=== PATIENT | male | born 1960 | race Caucasian/White ===

== ENCOUNTER 2017-05-21 07:50 | Inpatient (IN) | payer OTHER ==
[2017-05-21] MEDS: CEFAZOLIN 2 GM/50 ML (PMX) 50 ML IVPB (06:00)
[~2017-05-21 07:50] MED LIST: ATROPINE 1 MG/10 ML SYRINGE IV; CEFAZOLIN 1 GM INJ; DIPHENHYDRAMINE 50 MG INJ IV; EPHEDrine SULFATE 50 MG/5 ML SYG IV; FENTAnyl 50 MCG/ML VIAL IV; HYDROmorphONE (0.2 MG/ML) 10ML SYG IV; LABETALOL HCL 20MG INJ IV; LACTATED RINGER'S 1,000 ML IV*; MEPERIDINE 25 MG INJ IV; MIDAZOLAM 1 MG/ML 2 ML INJ IV; OXYCODONE/ACETAMINOPHEN (5/325) TAB PO; hydrALAzine 20 MG INJ IV; morphine (1 MG/ML) 10ML SYRINGE IV
[2017-05-21] MEDS ORDERED: LIDOCAINE 2% (SDV) 5 ML INJ (08:26)
[2017-05-21] MEDS ORDERED: GLYCOPYRROLATE 0.4 MG INJ (08:26)
[2017-05-21] MEDS ORDERED: NEOSTIGMINE 3 MG/3 ML SYRINGE (08:26)
[2017-05-21] MEDS ORDERED: ROCURONIUM 50 MG INJ (08:26)
[2017-05-21] MEDS ORDERED: PROPOFOL 20 ML (08:26)
[2017-05-21] MEDS ORDERED: FENTAnyl 50 MCG/ML VIAL (08:27)
[2017-05-21] MEDS ORDERED: DEXAMETHASONE 4 MG/ML 1 ML INJ (08:27)
[2017-05-21] MEDS ORDERED: MIDAZOLAM 1 MG/ML 2 ML INJ (08:27)
[2017-05-21] MEDS ORDERED: ONDANSETRON 4 MG INJ (08:27)
[2017-05-21] MEDS ORDERED: KETOROLAC 30 MG INJ (09:27)
[2017-05-21] MEDS ORDERED: FLUMAZENIL 0.5 MG INJ (09:45)
[2017-05-21] MEDS ORDERED: GELATIN SIZE 100 SPONGE (10:00)
[2017-05-21] MEDS ORDERED: THROMBIN 5000 UNIT VIAL (10:00)
[2017-05-21] MEDS ORDERED: hydrALAzine 20 MG INJ (11:11)
[2017-05-21] MEDS ORDERED: THROMBIN(HUM PLAS)/FIBRINOG/CA 5 ML VIAL TOP (11:19)
[2017-05-21] MEDS: BUPIVACAINE 0.25% (MPF) 30 ML INJ (11:43)
[2017-05-21] MEDS: POLYMYXIN/BACITRACIN 1L IRRIG (11:44)
[2017-05-21] MEDS ORDERED: DIAZEPAM 5 MG/ML SYG IM (13:00)
[2017-05-21] MEDS ORDERED: ONDANSETRON 4 MG INJ IV (13:00)
[2017-05-21] MEDS ORDERED: ZOLPIDEM 5 MG TAB PO (13:00)
[2017-05-21] MEDS ORDERED: ACETAMINOPHEN 325 MG TAB PO (13:00)
[2017-05-21] MEDS ORDERED: BETHANECHOL 25 MG TAB PO (13:00)
[2017-05-21] MEDS ORDERED: NALOXONE (0.4 MG/ML) INJ IV (13:00)
[2017-05-21] MEDS ORDERED: PROCHLORPERAZINE 10 MG TAB PO (13:00)
[2017-05-21] MEDS ORDERED: NACL 0.9% 3 ML SYG IV (13:00)
[2017-05-21] MEDS ORDERED: TRIMETHOBENZAMIDE 100 MG/ML VIAL IM (13:00)
[2017-05-21] MEDS ORDERED: DIPHENHYDRAMINE 50 MG CAP PO (13:00)
[2017-05-21] MEDS ORDERED: DIAZEPAM 5 MG TAB PO (13:00)
[2017-05-21] MEDS ORDERED: HYDROCODONE/APAP (5/325) TAB PO (13:00)
[2017-05-21] MEDS ORDERED: AL HYDROX/MG HYDROX/SIMETH 30 ML CUP PO (13:00)
[2017-05-21] MEDS: ONDANSETRON 4 MG INJ IV (13:09)
[2017-05-21] MEDS: HYDROmorphONE (0.2 MG/ML) 10ML SYG IV ×3 (13:09→13:38)
[2017-05-21] MEDS: HYDROmorphONE 0.2 MG/ML PCA IV (13:51)
[2017-05-21] MEDS: DEXTROSE 5%-0.45% NACL 1,000 ML IV ×2 (15:07→22:55)
[2017-05-21] MEDS: CEPASTAT LOZENGE MT (15:28)
[2017-05-21] MEDS: CEFAZOLIN 1 GM/50 ML (PMX) 50 ML IVPB (17:10)
[2017-05-21] MEDS: RANITIDINE 150 MG TAB PO (21:21)
[2017-05-22] MEDS: CEFAZOLIN 1 GM/50 ML (PMX) 50 ML IVPB ×3 (00:56→12:20)
[2017-05-22] MEDS: DEXTROSE 5%-0.45% NACL 1,000 ML IV (00:58)
[2017-05-22 05:21] LABS: HEMATOCRIT 38.7 % (42.0-52.0); HEMOGLOBIN 13.4 g/dl (14.0-18.0)
[2017-05-22] MEDS: HYDROmorphONE 0.2 MG/ML PCA IV (05:26)
[2017-05-22 05:58] LABS: ANION GAP 20 (8-16); BLOOD UREA NITROGEN 11 mg/dl (7-20); CALCIUM 9.1 mg/dl (8.4-10.2); CARBON DIOXIDE 22 mmol/L (21-31); CHLORIDE 107 mmol/L (97-110); GLUCOSE 133 mg/dl (70-220); POTASSIUM 4.2 mmol/L (3.5-5.1); SODIUM 145 mmol/L (135-144)
[2017-05-22] MEDS ORDERED: BETHANECHOL 25 MG TAB PO (08:00)
[2017-05-22] MEDS: RANITIDINE 150 MG TAB PO ×2 (09:39→21:10)
[2017-05-22] MEDS: FERROUS SULFATE (EC) 325 MG TAB PO ×3 (09:39→21:10)
[2017-05-22] MEDS: DOCUSATE SODIUM 100 MG CAP PO ×2 (09:39→21:10)
[2017-05-22] MEDS: ASCORBIC ACID 500 MG TAB PO ×2 (09:39→21:11)
[2017-05-22] MEDS: HYDROCODONE/APAP (5/325) TAB PO ×2 (15:19→21:11)
[2017-05-23] MEDS: RANITIDINE 150 MG TAB PO (08:51)
[2017-05-23] MEDS: DOCUSATE SODIUM 100 MG CAP PO (08:51)
[2017-05-23] MEDS: FERROUS SULFATE (EC) 325 MG TAB PO ×2 (08:51→13:00)
[2017-05-23] MEDS: ASCORBIC ACID 500 MG TAB PO (08:52)
[2017-05-23] MEDS: HYDROCODONE/APAP (5/325) TAB PO ×3 (09:02→16:40)
== END 2017-05-23 16:50 | disposition home or self-care (01) | DRG 519 ==
LOC: REC 07:50 → MS1 14:44
PROC: 0SB40ZZ Excision of Lumbosacral Disc, Open Approach (ICD-10-PCS; principal; 2017-05-21 10:28)
PROC: 00UT0JZ Supplement Spinal Meninges with Synthetic Substitute, Open Approach (ICD-10-PCS; 2017-05-21 10:28)
PROC: 01NB0ZZ Release Lumbar Nerve, Open Approach (ICD-10-PCS; 2017-05-21 10:28)
PROC: 4A11X4G Monitoring of Peripheral Nervous Electrical Activity, Intraoperative, External Approach (ICD-10-PCS; 2017-05-21 10:28)
DX: M51.27 Other intervertebral disc displacement, lumbosacral region (principal); G97.41 Accidental puncture or laceration of dura during a procedure; E78.5 Hyperlipidemia, unspecified; R51 Headache
CPT/HCPCS: 72020; 80048; 85014; 85018; 86850; 86900; 86901; 86920; 88304; 97116; 97161; 97530